=== PATIENT | male | born 1985 | race Caucasian/White ===

== ENCOUNTER → 2018-11-22 | Outpatient (CLI) | payer BC | END | disposition home or self-care (01) | LOC: HKI 09:30 | DX: M25.561 Pain in right knee (principal) | CPT/HCPCS: 73564 ==

== ENCOUNTER → 2018-12-08 | Outpatient (CLI) | payer BC | END | disposition home or self-care (01) | LOC: HKI 09:50 | DX: M67.461 Ganglion, right knee (principal) | CPT/HCPCS: 20610 ==